=== PATIENT | female | born 1955 | race Caucasian/White ===

== ENCOUNTER 2018-08-26 02:06 | Inpatient (IN) ==
--- NOTE | 2018-08-26 04:28 | Internal Med History&Physical ---
<Karol Alexandre N - Last Filed: 08/26/18 06:32> Date of Encounter: 08/26/18 Time of Encounter: 04:28 Internal Medicine - H&P: HPI Chief complaint: Persistent shortness of breath and weakness Admitted From: Emergency Dept History of present illness: Ms. Seymour is a 63 year old female with a history of CHF, COPD, CAD, diabetes, hypertension, hyperlipidemia, and hepatitis C. She arrived at [facility] as a transfer from [place], where she presented complaining of persistent shortness of breath and weakness. She recently returned home from a trip to [place] last month, which was complicated by an extended hospital stay. She states that she went to [place] to visit her sister in the hospital on July 18, and presented to the emergency room herself around July 31 for severe weakness and shortness of breath. She states that she was found to be severely anemic, with a hemoglobin around 4, and required transfusion of 2 units of blood. During this time, she was also diagnosed with pneumonia, and received antibiotic therapy with 2 different medications. She states that her severe anemia was a result of a GI bleed, as she had been experiencing black tarry stools for approximately 3-4 days before her hospital admission. She underwent EGD in [place], which did not reveal the source of the bleed. She states that she opted to leave the hospital prior to having a colonoscopy so that she could return home to her regular physician and complete her workup locally. She denies any recurrence of dark stools since having the EGD performed. She states that when she was discharged from the hospital she was requiring supplemental oxygen via nasal cannula. Prior to that hospitalization, she did not require home oxygen therapy. She arrived back home early this week, and states that she has continued to feel extremely weak and tired. She reports worsening shortness of breath with exertion and states that she has a hard time catching her breath. She notes that if she ambulates without supplemental oxygen, her oxygen saturation drops to the 80s, though it quickly improves back to the 90s when she puts it back on. She reports persistent cough without sputum production, and reports subjective fevers and chills. She states that the reason she sought evaluation and [place] last night was because her daughter, who is a nurse, told her that she did not look well and should be evaluated. Initial vital signs obtained upon arrival to the [place] ED were as follows: Temperature 100.1, HR 108, RR 24, BP 119/60, and oxygen saturation of 96% on 2 L. Her white blood cell count was within normal limits; however, she was found to have an elevated lactic acid of 2.7. Laboratory results were also significant for elevated AST of 43 and elevated alkaline phosphatase of 125. Chest x-ray demonstrated bilateral diffuse airspace disease, which was felt to likely be edema; however, it was noted that extensive pneumonia and also have this appearance. Due to initial concern for sepsis, patient administered 1 L of normal saline and started on IV antibiotic therapy with Zosyn. Repeat lactic acid after fluid administrate session was found to be improved at 2.2. Chest CTA demonstrated no evidence of pulmonary embolism or acute aortic disease, though patchy bilateral pulmonary infiltrates consistent with pneumonia were again noted. Patient was transferred to [facility] due to concern for recurrence bilateral pneumonia and possible sepsis. Patient was seen and evaluated by the bedside soon after arrival to [place]. Initial vital signs obtained upon arrival at [facility] were all within normal limits. She denied any ongoing wheezing or productive cough, though she stated that she felt like there was sputum stuck in her throat. She reports feeling slightly improved after having received fluids and antibiotics at [place]. Patient denied any acute complaints or concerns at the time of evaluation. Past Med Surg Social Fam HX - Past Medical History Medical history: arthritis, CHF, COPD, coronary artery disease, diabetes, fibromyalgia, GI bleed, hepatitis, hyperlipidemia, hypertension Additional medical history: heart blockage Psychiatric history: anxiety, depression - Past Surgical History Surgical History: cholecystectomy, hysterectomy Additional surgical history: foot surgery for heel spur - Social History Smoking Status: Former smoker Smokeless Tobacco Status: No Alcohol use: none Drug use: none - Family History Mother Living Status: Hx Family Endocrine Disorder: Yes Father Living Status: Hx Family Cancer: Yes Internal Medicine - H&P: Meds Furosemide [Lasix] 120 mg PO DAILY PRN 01/18/16 [History] Gabapentin [Neurontin] 600 mg PO QID 01/18/16 [History] Glimepiride [Amaryl] 2 mg PO DAILY 01/18/16 [History] Losartan [Cozaar] 25 mg PO DAILY 01/18/16 [History] Sertraline [Zoloft] 150 mg PO DAILY 01/18/16 [History] metFORMIN [Glucophage] 500 mg PO BID 01/18/16 [History] Tiotropium [Spiriva] 18 mcg IH DAILY #1 capsule 08/05/17 [Rx] Aspirin 81 mg PO DAILY #30 tab.chew 05/10/18 [Rx] Oxycodone HCl/Acetaminophen [Percocet 7.5-325 mg Tablet] 1 each PO BID PRN 05/10/18 [History] Clopidogrel [Plavix] 75 mg PO DAILY 08/25/18 [History] Pravastatin Sodium [Pravachol] 80 mg PO QPM 08/26/18 [History] Allergy/AdvReac Type Severity Reaction Status Date / Time carvedilol Allergy Difficulty Verified 08/25/18 20:29 Breathing moxifloxacin [From Avelox] Allergy Rash Verified 08/25/18 20:29 acetaminophen [From Vicodin] AdvReac Gastrointestinal Verified 08/25/18 20:29 Upset hydrocodone [From Vicodin] AdvReac Gastrointestinal Verified 08/25/18 20:29 Upset All Systems PM: A 10-system review of systems was performed and is negative for pertinent fi ndings except as documented above in the HPI. - Constitutional Exam: GENERAL: Well-developed, well-nourished adult female in no acute distress. She is interactive and pleasantly conversational. HEENT: Atraumatic and normocephalic. NECK: Soft and nontender. No thyromegaly or lymphadenopathy noted. CARDIOVASCULAR: Regular rate and rhythm. S1 and S2 present. RESPIRATORY: Diffusely decreased breath sounds bilaterally. No wheezes, rales, or rhonchi noted. Chest rises and falls symmetrically with respiration without accessory muscle use. GASTROINTESTINAL: Soft, nontender, and nondistended. EXTREMITIES: Mild bilateral lower extremity edema present. SKIN: Warm, dry, and intact. NEUROLOGIC: Alert and oriented 3. Patient is cooperative with exam and answers questions appropriately. No apparent focal deficits. PSYCHIATRIC: Appropriate mood and affect demonstrated. Internal Med - H&P Results - Labs CBC & Chem 7: 08/26/18 05:09 08/26/18 05:09 - Assessment and plan (1) Dyspnea Current Visit: Yes Status: Acute Assessment and plan: Likely multifactorial, given patient's recent bout of bilateral pneumonia and her history of COPD. Though chest x-ray and CT angiogram demonstrated findings consistent with pneumonia, it is likely that enough time has not passed to allow for complete resolution of the radiographic evidence of her prior infection. Patient is afebrile and does not have an elevated white blood cell count. - Vancomycin with pharmacy to dose to therapeutic level - Continue Zosyn 3.375mg Q8H - Repeat laboratory studies Tuesday morning with potential discontinuation of antibiotic therapy if she continues to show no sign of acute recurrent infection - Duonebs Q4H - Albuterol nebulizer Q2H PRN - Consider home oxygen qualification study - Consult to social work to facilitate home oxygen setup Qualifiers: Dyspnea type: unspecified Qualified Code(s): R06.00 - Dyspnea, unspecified (2) Diabetes mellitus Current Visit: No Status: Acute Assessment and plan: - Accuchecks ACHS - Low-dose corrective SSI PRN Qualifiers: Diabetes mellitus type: type 2 Diabetes mellitus intermediate school teacher insulin use: without intermediate school teacher use Diabetes mellitus complication status: with unspecified complications Qualified Code(s): E11.8 - Type 2 diabetes mellitus with unspecified complications (3) Hypertension Current Visit: Yes Assessment and plan: Patient is uncertain what blood pressure medication she takes, with the exception of losartan. She states that her heart doctor took her off one medication recently, but she is unsure what that was. - Continue home medication of losartan - Continue other home blood pressure medications once confirmed by pharmacy Qualifiers: Hypertension type: essential hypertension Qualified Code(s): I10 - Essential (primary) hypertension (4) Tobacco abuse Current Visit: Yes Status: Acute Assessment and plan: Patient has an extensive smoking history; however, she states that she has not smoked a cigarette since she was admitted to the hospital in [place] on 07/31/2018. She reports that use of a nicotine patch has assisted in her smoking cessation. - Patient was counseled and encouraged to continue with smoking cessation - Nicotine patch TD (5) DVT prophylaxis Current Visit: Yes Status: Acute Assessment and plan: - SCDs (6) Weakness Current Visit: Yes Status: Acute Assessment and plan: Likely secondary to deconditioning from recent pneumonia and severe anemia from presumed GI bleed. - Physical and occupation therapy consults placed for evaluation - Consider walk test for home oxygen qualification - Time Spent With Patient Total time spent is greater than 50% in coordination of care (as documented) at patient's floor/unit and/or counseling patient: <Farzaneh Leavitt - Last Filed: 08/26/18 18:47> Date of Encounter: 08/26/18 Internal Medicine - H&P: HPI History of present illness: Ms. Seymour is a 63 year old female All Systems PM: A 10-system review of systems was performed and is negative for pertinent findings except as documented above in the HPI. - Constitutional Vitals: Temp Pulse Resp BP Pulse Ox 97.9 F 86 16 146/63 94 08/26/18 12:12 08/26/18 17:14 08/26/18 15:37 08/26/18 17:14 08/26/18 17:14 Internal Med - H&P Results - Labs CBC & Chem 7: 08/26/18 05:09 08/26/18 05:09 Labs: Short CBC 08/26/18 Range/Units 05:09 WBC 7.0 (4.3-11.1) K/mcL Hgb 9.3 L (11.5-15.4) g/dL Hct 32.3 L (35.3-44.9) % Plt Count 231 (140-400) K/mcL Neutrophils # 3.6 (1.6-8.9) K/mcL BMP 08/26/18 05:09 Sodium 139 Potassium 3.6 Chloride 110 H Carbon Dioxide 22 L BUN 8 Creatinine 0.54 L Glucose 132 H Calcium 8.2 L Liver Function 08/26/18 Range/Units 05:09 Total Bilirubin 0.4 (0.3-1.0) mg/dL AST 30 (13-39) Units/L ALT 21 (7-52) Units/L Alkaline Phosphatase 116 H (34-104) Units/L Albumin 3.1 L (3.5-5.7) g/dL - Assessment and plan (1) Diabetes mellitus Current Visit: No Status: Acute Qualifiers: Diabetes mellitus type: type 2 Diabetes mellitus intermediate school teacher insulin use: without skilled nursing use Diabetes mellitus complication status: with unspecified complications Qualified Code(s): E11.8 - Type 2 diabetes mellitus with unspecified complications (2) Hypertension Current Visit: Yes Qualifiers: Hypertension type: essential hypertension Qualified Code(s): I10 - Essential (primary) hypertension (3) DVT prophylaxis Current Visit: Yes Status: Acute (4) Tobacco abuse Current Visit: Yes Status: Acute (5) Dyspnea Current Visit: Yes Status: Acute Qualifiers: Dyspnea type: unspecified Qualified Code(s): R06.00 - Dyspnea, unspecified (6) Weakness Current Visit: Yes Status: Acute - Time Spent With Patient Total time spent is greater than 50% in coordination of care (as documented) at patient's floor/unit and/or counseling patient: - Attending Attestation I performed a history and physical examination of the patient and discussed her management with the resident. I reviewed the resident's note and agree with the documented findings and plan of care.
[2018-08-26 05:32] LABS: Basophils % 0.3 %; Mean Corpuscular HGB Conc 28.8 g/dL (31.6-35.5); Red Cell Distribution Width 17.8 % (11.5-14.5)
[2018-08-26 05:33] LABS: Eosinophils # 0.2 K/mcL (0.0-0.6); Eosinophils % 2.4 %; Hematocrit 32.3 % (35.3-44.9); Hemoglobin 9.3 g/dL (11.5-15.4); Immature Granulocytes % 0.4 % (0-4); Lymphocytes # 2.6 K/mcL (0.6-4.6); Lymphocytes % 37.1 %; Mean Corpuscular Hemoglobin 23.5 pg (28.0-33.3); Mean Corpuscular Volume 81.6 fL (83.0-100.0); Mean Platelet Volume 10.4 fL (9.4-12.4); Monocytes # 0.6 K/mcL (0.0-1.3); Monocytes % 8.4 %; Neutrophils # 3.6 K/mcL (1.6-8.9); Platelet Count 231 K/mcL (140-400); Red Blood Count 3.96 M/mcL (3.82-4.97); Segmented Neutrophils % 51.4 %
[2018-08-26 05:38] LABS: INR 1.1; Prothrombin Time 12.4 Seconds (9.4-12.1)
[2018-08-26] MEDS ORDERED: Naloxone 0.4 MG/ML INJ IVP PRN (05:40)
[2018-08-26] MEDS ORDERED: *HR* Dextrose 50 % in Water (Syg) 50 ML SYRINGE IVP PRN (05:45)
[2018-08-26] MEDS ORDERED: Dextrose Gel 15 GM/37.5 ML TUBE PO PRN ×2 (05:45)
[2018-08-26] MEDS ORDERED: D5% in Water 1,000 ML IVC PRN (05:45)
[2018-08-26] MEDS ORDERED: Albuterol 2.5 MG/3 ML NEBULIZER IH PRN (05:47)
[2018-08-26 05:52] LABS: Alanine Aminotransferase 21 Units/L (7-52); Albumin 3.1 g/dL (3.5-5.7); Alkaline Phosphatase 116 Units/L (34-104); Aspartate Amino Transferase 30 Units/L (13-39); BUN/Creatinine Ratio 15 (6-26); Bilirubin,Total 0.4 mg/dL (0.3-1.0); Blood Urea Nitrogen 8 mg/dL (8-23); Calcium 8.2 mg/dL (8.6-10.3); Carbon Dioxide 22 mEq/L (23-29); Chloride 110 mEq/L (98-107); Glucose 132 mg/dL (70-105); Osmolality,Calculated 288 (280-300); Potassium 3.6 mEq/L (3.5-5.1); Sodium 139 mEq/L (136-145); Total Protein 6.1 g/dL (6.4-8.9); eGFR For Non-African Americans > 60 (> 60)
[2018-08-26 06:02] LABS: Anisocytosis 1+ (Not Present); Hypochromasia Present (Not Present); Macrocytosis Present (Not Present); Platelet Estimate Normal (Normal); Poikilocytosis 1+ (Not Present)
[2018-08-26 06:03] LABS: Polychromasia 1+ (Not Present); Tear Drop Cells 1+ (Not Present)
[2018-08-26 06:04] LABS: Ovalocytes 1+ (Not Present)
[2018-08-26] MEDS ORDERED: Furosemide 40 MG TABLET PO PRN (06:05)
[2018-08-26] MEDS: Ipratropium/Albuterol Neb 3 ML IH SCH ×5 (07:57→23:08)
[2018-08-26] MEDS: Insulin LISPRO 300 UNITS/3 ML VIAL SQ SCH ×4 (09:26→21:52)
[2018-08-26] MEDS: Gabapentin 300 MG CAPSULE PO SCH ×4 (09:29→21:50)
[2018-08-26] MEDS: Nicotine 21 MG PATCH.TD24 TD SCH (09:29)
[2018-08-26] MEDS: Piperacillin/Tazobactam 3.375 GM in 0.9 % Sodium Chloride Mini Bag 100 ML IVPB SCH ×2 (10:16→15:17)
[2018-08-26] MEDS: *HR* Heparin 5,000 UNIT/ML VIAL SQ SCH ×2 (13:37→21:51)
--- NOTE | 2018-08-26 17:04 | Event Note ---
Date of Encounter: 08/26/18 Time of Encounter: 11:00 Patient seen and evaluated by nocturnalist earlier this morning and also by m yself. Patient is a 62-year-old female with past medical history significant for CHF, COPD, CAD, diabetes, hypertension, hyperlipidemia, and hepatitis C who arrived as a transfer from [facility] due to extensive pneumonia that was noted on imaging and concern for sepsis. Patient without leukocytosis and afebrile; she is on her baseline O2. Will continue IV vancomycin and IV Zosyn.
[2018-08-26] MEDS ORDERED: *HR* OxyCODONE/APAP 5/325 TABLET PO ONE (18:03)
[2018-08-27] MEDS: Piperacillin/Tazobactam 3.375 GM in 0.9 % Sodium Chloride Mini Bag 100 ML IVPB SCH ×3 (01:31→16:58)
[2018-08-27 02:49] LABS: Basophils % 0.2 %; Eosinophils # 0.1 K/mcL (0.0-0.6); Eosinophils % 2.5 %; Hematocrit 30.2 % (35.3-44.9); Hemoglobin 8.5 g/dL (11.5-15.4); Immature Granulocytes % 0.2 % (0-4); Lymphocytes # 1.7 K/mcL (0.6-4.6); Lymphocytes % 37.5 %; Mean Corpuscular HGB Conc 28.1 g/dL (31.6-35.5); Mean Corpuscular Hemoglobin 23.7 pg (28.0-33.3); Mean Corpuscular Volume 84.4 fL (83.0-100.0); Mean Platelet Volume 10.3 fL (9.4-12.4); Monocytes # 0.5 K/mcL (0.0-1.3); Monocytes % 11.3 %; Neutrophils # 2.1 K/mcL (1.6-8.9); Platelet Count 192 K/mcL (140-400); Red Blood Count 3.58 M/mcL (3.82-4.97); Red Cell Distribution Width 17.7 % (11.5-14.5); Segmented Neutrophils % 48.3 %
[2018-08-27 03:01] LABS: BUN/Creatinine Ratio 17 (6-26); Blood Urea Nitrogen 9 mg/dL (8-23); Calcium 8.1 mg/dL (8.6-10.3); Carbon Dioxide 23 mEq/L (23-29); Chloride 109 mEq/L (98-107); Glucose 179 mg/dL (70-105); Osmolality,Calculated 293 (280-300); Potassium 3.5 mEq/L (3.5-5.1); Sodium 140 mEq/L (136-145); eGFR For Non-African Americans > 60 (> 60)
[2018-08-27 03:31] LABS: Hypochromasia Present (Not Present); Platelet Estimate Normal (Normal)
[2018-08-27] MEDS: Ipratropium/Albuterol Neb 3 ML IH SCH ×6 (04:57→23:58)
[2018-08-27] MEDS: *HR* Heparin 5,000 UNIT/ML VIAL SQ SCH ×3 (06:22→21:52)
[2018-08-27] MEDS: Nicotine 21 MG PATCH.TD24 TD SCH (08:27)
[2018-08-27] MEDS: Furosemide 40 MG TABLET PO SCH ×3 (08:28→16:59)
--- NOTE | 2018-08-27 09:09 | Internal Med Progress Note ---
Hospitalist Progress Note - Encounter Date of Encounter: 08/27/18 Time of Encounter: 11:00 - Subjective Interval History: Patient with a past medical history significant for acute anemia in addition to CHF and COPD presents as a transfer from [facility] due to concerns for sepsis with pneumonia. Patient noted to have patchy bilateral pulmonary infiltrates consistent with ammonia on imaging but has remained afebrile without leukocytosis and is on room air Patient with acute anemia on admission and hemoglobin continues to drop; patient hemodynamically stable (will consult GI) - Exam Vitals: Temp Pulse Resp BP Pulse Ox 97.9 F 93 17 120/49 90 08/27/18 08:42 08/27/18 08:42 08/27/18 05:24 08/27/18 08:42 08/27/18 08:42 Exam: Gen.: Nonacute distress, alert and oriented 3 ENT: Mucosal membranes moist Respiratory: Lungs are clear to auscultation bilaterally without any wheezing rhonchi or rales Cardiovascular: Normal S1 and S2 regular rate rhythm no murmurs rubs or gallops Abdomen: Soft, nontender and nondistended with positive bowel sounds Extremities: No lower extremity edema Skin: Normal color - Assessment and Plan (1) Pneumonia Current Visit: Yes Status: Acute Assessment and Plan: Patient with patchy bilateral pulmonary infiltrates consistent with pneumonia on CT of the chest Patient has been weaned off supplemental oxygenation and there is afebrile without leukocytosis Will continue day 2 of IV Zosyn and vancomycin (2) Acute anemia Current Visit: Yes Status: Acute Assessment and Plan: Patient noted to have a hemoglobin of 10.5 on admission and this morning is 8.5; repeat hemoglobin later on in the day was 9.2 Patient had a hemoglobin of 12.8 on 05/11/18 Per EMR report patient apparently was found to have acute blood loss anemia in [place] and had a partial workup by GI but left prior to getting recommended c olonoscopy Will consult GI to complete workup for etiology of acute anemia Will continue to monitor hemoglobin (3) Weakness Current Visit: Yes Status: Acute Assessment and Plan: Suspect multifactorial secondary to pneumonia and anemia above Physical/occupational therapy consult and appreciate recommendations (4) Dyspnea Current Visit: Yes Status: Acute Assessment and Plan: Suspect multifactorial as above Patient has been weaned off supplemental oxygenation Continue management as above (5) Hypertension Current Visit: Yes Assessment and Plan: Controlled; continue home dose of losartan (6) Diabetes mellitus Current Visit: No Status: Acute Assessment and Plan: Continue Accuchecks ACHS with low-dose corrective SSI (7) Mood disorder Current Visit: Yes Status: Acute Assessment and Plan: Continue home medications (8) HLD (hyperlipidemia) Current Visit: Yes Status: Acute Assessment and Plan: Continue statin (9) Tobacco abuse Current Visit: Yes Status: Acute Assessment and Plan: Smoking cessation; Nicotine patch TD (10) DVT prophylaxis Current Visit: Yes Status: Acute - Time Spent with Patient Total time spent is greater than 50% in coordination of care (as documented) at patient's floor/unit and/or counseling patient: Internal Medicine: Result - Labs CBC & Chem 7: 08/27/18 14:25 08/27/18 02:17 Labs: Short CBC 08/27/18 Range/Units 02:17 WBC 4.4 (4.3-11.1) K/mcL Hgb 8.5 L (11.5-15.4) g/dL Hct 30.2 L (35.3-44.9) % Plt Count 192 (140-400) K/mcL Neutrophils # 2.1 (1.6-8.9) K/mcL BMP 08/27/18 02:17 Sodium 140 Potassium 3.5 Chloride 109 H Carbon Dioxide 23 BUN 9 Creatinine 0.54 L Glucose 179 H Calcium 8.1 L - ABG Interpretation ABG results: PT/INR, D-dimer PT 12.4 Seconds (9.4-12.1) H 08/26/18 05:09 Consult Discharge Plan - Plan Referrals: Justin Sharma, WOOD HANDLER [Primary Care Provider] - (4) Dyspnea Qualifiers: Dyspnea type: unspecified Qualified Code(s): R06.00 - Dyspnea, unspecified (5) Hypertension Qualifiers: Hypertension type: essential hypertension Qualified Code(s): I10 - Essential (primary) hypertension (6) Diabetes mellitus Qualifiers: Diabetes mellitus type: type 2 Diabetes mellitus terminal supervisor insulin use: witho ut residential use Diabetes mellitus complication status: with unspecified c omplications Qualified Code(s): E11.8 - Type 2 diabetes mellitus with unsp ecified complications
[2018-08-27] MEDS: Insulin LISPRO 300 UNITS/3 ML VIAL SQ SCH ×4 (09:56→22:43)
[2018-08-27] MEDS: Gabapentin 300 MG CAPSULE PO SCH ×4 (10:37→21:51)
[2018-08-27 14:44] LABS: Hematocrit 32.6 % (35.3-44.9); Hemoglobin 9.2 g/dL (11.5-15.4)
[2018-08-28] MEDS: Piperacillin/Tazobactam 3.375 GM in 0.9 % Sodium Chloride Mini Bag 100 ML IVPB SCH ×3 (02:20→15:23)
[2018-08-28] MEDS: Ipratropium/Albuterol Neb 3 ML IH SCH ×6 (03:50→23:11)
[2018-08-28] MEDS: *HR* Heparin 5,000 UNIT/ML VIAL SQ SCH (06:14)
[2018-08-28] MEDS: Nicotine 21 MG PATCH.TD24 TD SCH (09:46)
[2018-08-28] MEDS: Insulin LISPRO 300 UNITS/3 ML VIAL SQ SCH ×4 (09:47→20:44)
[2018-08-28] MEDS: Furosemide 40 MG TABLET PO SCH ×3 (09:47→17:12)
[2018-08-28] MEDS: Gabapentin 300 MG CAPSULE PO SCH ×4 (09:48→20:35)
[2018-08-28] MEDS ORDERED: *HR* OxyCODONE/APAP 5/325 TABLET PO PRN (09:55)
--- NOTE | 2018-08-28 10:49 | Gastroenterology Consult Note ---
<Christie Marcial - Last Filed: 08/28/18 10:46> Date of Encounter: 08/28/18 Time of Encounter: 09:50 - Assessment and plan (1) Acute anemia Current Visit: Yes Status: Acute Assessment and plan: Pt had negative EGD 2 weeks ago. She is on plavix for coronary stent 4 months ago. She had melena which is resolved. She needs EGD and colonoscopy to rule out esophagitis, duodenitis, gastritis, pud, MW tear, or avm, will plan for tomorrow. Discussed pt and she verbalizes understanding and is in agreement. Would hold plavix and continue heparin bridge until after scopes. (2) Pneumonia Current Visit: Yes Status: Acute Assessment and plan: Continue DN, zosyn, and vanco, per primary Qualifiers: Pneumonia type: due to unspecified organism Laterality: bilateral Lung location: unspecified part of lung Qualified Code(s): J18.9 - Pneumonia, unspecified organism - Time Spent With Patient Total time spent is greater than 50% in coordination of care (as documented) at patient's floor/unit and/or counseling patient: GI History of Present Illness - Data of Consult Patient: new to practice Consult date: 08/28/18 Requesting Physician: Carmelo Cardona - Consult Narrative Reason for consult: anemia History of present illness: Ms. Seymour is a 63 year old female with a history of CHF, COPD, CAD, diabetes, hypertension, hyperlipidemia, and hepatitis C. She presented to [facility], with complaints of persistent shortness of breath and weakness. She recently returned home from a trip to [place] last month, which was complicated by an extended hospital stay. She states that she went to [place] to visit her sister in the hospital on July 18, and presented to the emergency room herself around July 31 for severe weakness and shortness of breath. She states that she was found to be severely anemic, with a hemoglobin around 4, and required transfusion of 2 units of blood. During this time, she was also diagnosed with pneumonia, and received antibiotic therapy with 2 different medications. She states that her severe anemia was a result of a GI bleed, as she had been experiencing black tarry stools for approximately 3-4 days before her hospital admission. She underwent EGD in [place], which did not reveal the source of the bleed. She states that she opted to leave the hospital prior to having a colonoscopy so that she could return home to her regular physician and complete her workup locally. She denies any recurrence of dark stools since having the EGD performed. She denies any abdominal pain nausea, vomiting, reflux, or diarrhea. She states she had a normal brown stool this morning. She denies any bright red rectal bleeding. She does complain of 2+ bilateral lower extremity edema. She is currently on Plavix for coronary stents were replaced which were placed in April 2018. Hemoglobin dropped from 12.8-8.5. EGD: 08/03 no bleeding found Colonoscopy: (years ago per pt) Anticoagulants: plavix on hold, sub q heparin Past Med Surg Social Fam HX - Past Medical History Medical history: arthritis, CHF, COPD, coronary artery disease, diabetes, fibromyalgia, GI bleed, hepatitis, hyperlipidemia, hypertension Additional medical history: heart blockage Psychiatric history: anxiety, depression - Past Surgical History Surgical History: cholecystectomy, hysterectomy Additional surgical history: foot surgery for heel spur - Social History Smoking Status: Former smoker Smokeless Tobacco Status: No Alcohol use: none Drug use: none - Family History Mother Living Status: Hx Family Endocrine Disorder: Yes Father Living Status: Age at : 75 Cause of : burned Hx Family Cancer: Yes Review of Systems: GI: as per [place] GENERAL: had fever and some chills EYES: denies yellow discoloration ENT: denies pain with swallowing or difficulty swallowing CARDIO: denies chest pain, palpitations RESP: Shortness of breath with exertion : denies change in color of urine NEURO: increased weakness HEME: Denies any bruising MS: denies joint pain, joint swelling or back pain. DERM: denies rash or itching PSYCH: Denies history of anxiety or depression - Constitutional Vitals: Temp Pulse Resp BP Pulse Ox 97.6 F 90 16 120/59 90 08/28/18 06:00 08/28/18 06:00 08/28/18 07:23 08/28/18 06:00 08/28/18 07:23 Exam: CONSTITUTIONAL:alert, no acute distress.HEAD:normocephalic.EYES:no jaundice.NECK:no obvious swelling.HEART:regular rate and rhythm, no murmurs.LUNGS:bilateral fair air entry.ABDOMEN:non distended, soft, non tender, no masses palpable, no organomegaly.RECTAL EXAM:Deferred.EXTREMITIES:no clubbing, cyanosis, 2+ ble edema.SKIN:no stigmata of chronic liver disease, pallor noted.NEUROLOGIC:no obvious focal defect. Results - Labs CBC & Chem 7: 08/27/18 14:25 08/27/18 02:17 Labs: Last Result Calcium 8.1 mg/dL (8.6-10.3) L 08/27/18 02:17 Entire Visit Hgb 9.2 g/dL (11.5-15.4) L 08/27/18 14:25 Hct 32.6 % (35.3-44.9) L 08/27/18 14:25 PT 12.4 Seconds (9.4-12.1) H 08/26/18 05:09 Total Bilirubin 0.4 mg/dL (0.3-1.0) 08/26/18 05:09 AST 30 Units/L (13-39) 08/26/18 05:09 ALT 21 Units/L (7-52) 08/26/18 05:09 - ABG ABG results: PT/INR, D-dimer PT 12.4 Seconds (9.4-12.1) H 08/26/18 05:09 Consult Discharge Plan - Plan Referrals: Justin Sharma, CR[employer] SERVICE TECHNICIAN [Primary Care Provider] - <Omero Pate - Last Filed: 08/28/18 18:27> Date of Encounter: 08/28/18 Time of Encounter: 18:00 - Time Spent With Patient Total time spent is greater than 50% in coordination of care (as documented) at patient's floor/unit and/or counseling patient: GI History of Present Illness - Data of Consult Requesting Physician: Carmelo Cardona - Consult Narrative History of present illness: Ms. Seymour is a 63 year old female - Constitutional Vitals: Temp Pulse Resp BP Pulse Ox 97.6 F 109 15 129/72 92 08/28/18 16:34 08/28/18 16:34 08/28/18 16:34 08/28/18 16:34 08/28/18 16:34 Results - Labs CBC & Chem 7: 08/27/18 14:25 08/27/18 02:17 Labs: Last Result Calcium 8.1 mg/dL (8.6-10.3) L 08/27/18 02:17 Entire Visit Hgb 9.2 g/dL (11.5-15.4) L 08/27/18 14:25 Hct 32.6 % (35.3-44.9) L 08/27/18 14:25 PT 12.4 Seconds (9.4-12.1) H 08/26/18 05:09 Total Bilirubin 0.4 mg/dL (0.3-1.0) 08/26/18 05:09 AST 30 Units/L (13-39) 08/26/18 05:09 ALT 21 Units/L (7-52) 08/26/18 05:09 - ABG ABG results: PT/INR, D-dimer PT 12.4 Seconds (9.4-12.1) H 08/26/18 05:09 - Attending Attestation I have personally performed a face to face evaluation on this patient. I have reviewed and agree with the care plan. History and Exam by me shows: Pt seen at the bedside. Per The patient she was having black stool although lately stools are brown in color. Denies any abdominal pain. On examination,: Abdomen is large but soft. Assessment: Patient with coronary disease status post stenting 4 months ago now with anemia with acute drop in her hemoglobin with a history of black stool last week. Had EGD done recently which was unremarkable. Recommendation: EGD and colonoscopy to rule out GI causes for her anemia/blood loss
--- NOTE | 2018-08-28 20:05 | Internal Med Progress Note ---
Hospitalist Progress Note - Encounter Date of Encounter: 08/28/18 Time of Encounter: 11:00 - Subjective Interval History: Patient with a past medical history significant for acute anemia in addition to CHF and COPD presents as a transfer from [facility] due to concerns for sepsis with pneumonia. Patient noted to have patchy bilateral pulmonary infiltrates consistent with ammonia on imaging but has remained afebrile without leukocytosis and is on room air Patient with acute anemia on admission and hemoglobin continues to drop; patient hemodynamically stable GI consult with recommendation for upper and lower endoscopy on 08/29/18 for evaluation. - Exam Vitals: Temp Pulse Resp BP Pulse Ox 97.6 F 109 16 129/72 97 08/28/18 16:34 08/28/18 16:34 08/28/18 19:47 08/28/18 16:34 08/28/18 19:47 Exam: Gen.: Nonacute distress, alert and oriented 3 ENT: Mucosal membranes moist Respiratory: Lungs are clear to auscultation bilaterally without any wheezing rhonchi or rales Cardiovascular: Normal S1 and S2 regular rate rhythm no murmurs rubs or gallops Abdomen: Soft, nontender and nondistended with positive bowel sounds Extremities: No lower extremity edema Skin: Normal color - Assessment and Plan (1) Pneumonia Current Visit: Yes Status: Acute Assessment and Plan: Patient with patchy bilateral pulmonary infiltrates consistent with pneumonia on CT of the chest Patient has been weaned off supplemental oxygenation and there is afebrile without leukocytosis Will continue day 3 of IV Zosyn and vancomycin (2) Acute anemia Current Visit: Yes Status: Acute Assessment and Plan: Patient noted to have a hemoglobin of 10.5 on admission and this morning is 8.5; repeat hemoglobin later on in the day was 9.2 Patient had a hemoglobin of 12.8 on 05/11/18 Per EMR report patient apparently was found to have acute blood loss anemia in [place] and had a partial workup by GI but left prior to getting recommended colonoscopy GI consult with recommendation for upper and lower endoscopy on 08/29/18 for evaluation. Will continue to monitor hemoglobin (3) Weakness Current Visit: Yes Status: Acute Assessment and Plan: Suspect multifactorial secondary to pneumonia and anemia above Physical/occupational therapy consult and appreciate recommendations (4) Dyspnea Current Visit: Yes Status: Acute Assessment and Plan: Suspect multifactorial as above Patient has been weaned off supplemental oxygenation Continue management as above (5) Hypertension Current Visit: Yes Assessment and Plan: Controlled; continue home dose of losartan (6) Diabetes mellitus Current Visit: No Status: Acute Assessment and Plan: Continue Accuchecks ACHS with low-dose corrective SSI (7) Mood disorder Current Visit: Yes Status: Acute Assessment and Plan: Continue home medications (8) HLD (hyperlipidemia) Current Visit: Yes Status: Acute Assessment and Plan: Continue statin (9) Tobacco abuse Current Visit: Yes Status: Acute Assessment and Plan: Smoking cessation; Nicotine patch TD (10) DVT prophylaxis Current Visit: Yes Status: Acute Assessment and Plan: - SCDs - Time Spent with Patient Total time spent is greater than 50% in coordination of care (as documented) at patient's floor/unit and/or counseling patient: Internal Medicine: Result - Labs CBC & Chem 7: 08/27/18 14:25 08/27/18 02:17 - ABG Interpretation ABG results: PT/INR, D-dimer PT 12.4 Seconds (9.4-12.1) H 08/26/18 05:09 Consult Discharge Plan - Plan Referrals: Justin Sharma, DISTRIBUTION SYSTEMS SUPERINTENDENT [Primary Care Provider] - (1) Pneumonia Qualifiers: Pneumonia type: due to unspecified organism Laterality: bilateral Lung location: unspecified part of lung Qualified Code(s): J18.9 - Pneumonia, unspecified organism (4) Dyspnea Qualifiers: Dyspnea type: unspecified Qualified Code(s): R06.00 - Dyspnea, unspecified (5) Hypertension Qualifiers: Hypertension type: essential hypertension Qualified Code(s): I10 - Essential (primary) hypertension (6) Diabetes mellitus Qualifiers: Diabetes mellitus type: type 2 Diabetes mellitus snf insulin use: without svp programmatic tv use Diabetes mellitus complication status: with unspecified complications Qualified Code(s): E11.8 - Type 2 diabetes mellitus with unspecified complications
[2018-08-29] MEDS: Piperacillin/Tazobactam 3.375 GM in 0.9 % Sodium Chloride Mini Bag 100 ML IVPB SCH ×2 (00:16→08:31)
[2018-08-29] MEDS: Ipratropium/Albuterol Neb 3 ML IH SCH ×4 (04:06→15:40)
[2018-08-29 04:42] LABS: Hematocrit 31.1 % (35.3-44.9); Hemoglobin 9.3 g/dL (11.5-15.4); Mean Corpuscular HGB Conc 29.9 g/dL (31.6-35.5); Mean Corpuscular Hemoglobin 23.9 pg (28.0-33.3); Mean Corpuscular Volume 79.9 fL (83.0-100.0); Mean Platelet Volume 9.7 fL (9.4-12.4); Platelet Count 298 K/mcL (140-400); Red Blood Count 3.89 M/mcL (3.82-4.97)
[2018-08-29 04:43] LABS: Basophils % 0.3 %; Eosinophils # 0.2 K/mcL (0.0-0.6); Eosinophils % 2.4 %; Immature Granulocytes % 0.4 % (0-4); Lymphocytes % 42.1 %; Monocytes # 0.9 K/mcL (0.0-1.3); Monocytes % 9.8 %
[2018-08-29 04:44] LABS: Lymphocytes # 3.8 K/mcL (0.6-4.6)
[2018-08-29 04:56] LABS: BUN/Creatinine Ratio 8 (6-26); Blood Urea Nitrogen 7 mg/dL (8-23); Calcium 8.3 mg/dL (8.6-10.3); Carbon Dioxide 24 mEq/L (23-29); Chloride 103 mEq/L (98-107); Glucose 129 mg/dL (70-105); Osmolality,Calculated 286 (280-300); Potassium 3.3 mEq/L (3.5-5.1); Sodium 138 mEq/L (136-145); eGFR For Non-African Americans > 60 (> 60)
[2018-08-29] MEDS: Insulin LISPRO 300 UNITS/3 ML VIAL SQ SCH ×2 (07:36→12:02)
[2018-08-29] MEDS: Furosemide 40 MG TABLET PO SCH ×3 (08:32→16:13)
[2018-08-29] MEDS: Nicotine 21 MG PATCH.TD24 TD SCH (08:32)
[2018-08-29] MEDS: Gabapentin 300 MG CAPSULE PO SCH ×3 (08:32→16:13)
--- NOTE | 2018-08-29 11:10 | Anesthesia Evaluation PreOp ---
Date of Encounter: 08/29/18 Time of Encounter: 11:08 - Past History Planned Operation: EGD/Colonoscopy Cardiac History: CHF, HTN, Hyperlipidemia Pulmonary History: COPD MILLER HEAD WET PROCESS History: Other (Anxiety/Depression) Other Medical History: Hepatic (Hep C), Diabetes Type II, Other (fibromyalgia) Anesthesia History: No Prior Anesthetic Complications, Past Anesthesia (cholecystectomy, hysterectomy foot surgery for heel spur) : No Alcohol Use: none Drug use: none Medications and Allergies Furosemide [Lasix] 120 mg PO DAILY PRN 01/18/16 [History] Gabapentin [Neurontin] 600 mg PO QID 01/18/16 [History] Glimepiride [Amaryl] 2 mg PO DAILY 01/18/16 [History] Losartan [Cozaar] 25 mg PO DAILY 01/18/16 [History] Sertraline [Zoloft] 150 mg PO DAILY 01/18/16 [History] metFORMIN [Glucophage] 500 mg PO BID 01/18/16 [History] Tiotropium [Spiriva] 18 mcg IH DAILY #1 capsule 08/05/17 [Rx] Aspirin 81 mg PO DAILY #30 tab.chew 05/10/18 [Rx] Oxycodone HCl/Acetaminophen [Percocet 7.5-325 mg Tablet] 1 each PO BID PRN 05/10/18 [History] Clopidogrel [Plavix] 75 mg PO DAILY 08/25/18 [History] Pravastatin Sodium [Pravachol] 80 mg PO QPM 08/26/18 [History] Allergy/AdvReac Type Severity Reaction Status Date / Time carvedilol Allergy Difficulty Verified 08/25/18 20:29 Breathing moxifloxacin [From Avelox] Allergy Rash Verified 08/25/18 20:29 acetaminophen [From Vicodin] AdvReac Gastrointestinal Verified 08/25/18 20:29 Upset hydrocodone [From Vicodin] AdvReac Gastrointestinal Verified 08/25/18 20:29 Upset - Meds/Allergy Pre-op Review Medications Reviewed: Yes Allergies Reviewed: Yes Beta Blockers on Current Med List: No Anesthesia Results - Labs 08/29/18 04:25 08/29/18 04:25 04/24/18 Stress EF-68% Reversible Ischemia apical anterior, apical lateral and apex, Cardiac Cath Name: Erin Seymour Date of Study: 05/10/2018 CAD (without ischemic Sx) Impressions: There is severe one vessel coronary artery disease. The left ventricle is normal and has normal contractility EF 60% Patient had successful PTCA/Drug-Eluting Stent placement in the mid RCA. Echocardiogram Name: Erin Seymour Date of Study: 04/07/2018 Impressions: LVEF 65%. Indeterminate diastolic function. Normal right ventricular structure and function. No significant valvular dysfunction. No pulmonary hypertension. - Imaging EKG: report reviewed (SINUS RHYTHM MARKED LEFT AXIS DEVIATION RIGHT BUNDLE BRANCH BLOCK) Anesthesia Exam Vital Signs/O2 Sat, Most Current Temp Pulse Resp BP Pulse Ox 98.5 F 108 18 143/65 92 08/29/18 05:09 08/29/18 08:23 08/29/18 10:58 08/29/18 08:23 08/29/18 10:58 NPO (# of Hours): > 8 hrs Pain Scale: 0 Pain Scale Used: Numeric (1 - 10) - HEENT Pupil (Motor): Pupils equal, EOMI Mallampati: III Teeth: Normal Oral Opening: Greater than 3 - MILLER HEAD WET PROCESS LOC: Oriented MILLER HEAD WET PROCESS Motor: Normal RUE, Normal LUE, Normal RLE, Normal LLE, Normal Face MILLER HEAD WET PROCESS Sensory: Normal: RUE, LUE, RLE, LLE, Face - Cardiac Rhythm: Regular Murmur: None JVD: No Carotid Bruit: No - Pulmonary Breath Sounds: bilateral Clear Respiratory Effort: Symmetrical Anesthesia Assess/Plan ASA Score: 3 Anesthetic Plan: MAC Autologous Blood: Yes Monitoring Plan: Standard Monitors Recovery Plan: PACU
[2018-08-29 14:06] VITALS: BP 104/48
[2018-08-29] MEDS ORDERED: Potassium Chloride Elixir 20 MEQ/15 ML UDC PO ONE (14:19)
[2018-08-29] MEDS ORDERED: Propofol 500 MG/50 ML INFUS..BTL ONE (14:54)
[2018-08-29] MEDS ORDERED: Aspirin Enteric Coated 81 MG Tablet PO SCH (15:30)
--- NOTE | 2018-08-29 15:56 | Internal Med Progress Note ---
Hospitalist Progress Note - Encounter Date of Encounter: 08/29/18 Time of Encounter: 15:53 - Exam Vitals: Temp Pulse Resp BP Pulse Ox 97.8 F 95 16 104/48 95 08/29/18 12:30 08/29/18 14:04 08/29/18 14:04 08/29/18 14:04 08/29/18 14:04 - Assessment and Plan (1) Acute anemia Current Visit: Yes Status: Acute Assessment and Plan: Patient presenting with symptomatic anemia Plan scheduled for EGD and colonoscopy GI recommendations appreciated Will consider transfusing 1 PRBC if Hb <7 or Hct <23 or patient becomes symptom atic (2) Diabetes mellitus Current Visit: No Status: Chronic Assessment and Plan: Blood sugar well controlled. Continue lispro before meals sliding scale. (3) Hypertension Current Visit: Yes Assessment and Plan: Blood pressure well controlled. Patient is on furosemide 40 mg 3 times a day by mouth. (4) Weakness Current Visit: Yes Status: Acute Assessment and Plan: PT/OT evaluated the patient. skilled therapy needed at this time (5) Mood disorder Current Visit: Yes Status: Acute (6) Pneumonia Current Visit: Yes Status: Acute Assessment and Plan: Resolving. Plan discontinue piperacillin/tazobactam start Augmentin 875 mg by mouth twice a day. (7) HLD (hyperlipidemia) Current Visit: Yes Status: Acute (8) Tobacco abuse Current Visit: Yes Status: Acute (9) Hypokalemia Current Visit: Yes Status: Acute Assessment and Plan: Electrolyte replaced. Follow a.m. BMP. Mag and Phosp (10) CAD (coronary artery disease) Current Visit: Yes Status: Chronic Assessment and Plan: recent stent placement. Plan Patient was on dual antiplatelet therapy. Aspirin held due to GI work up for possible GI bleed Plavix continued will resume dual antiplatelet based on GI work up results. Patient needs to continue at least one antiplatelet. DVT Prophylaxis: No chemical DVT prophylaxis due to chronic anemia rule out GI bleed. Mechanical DVT prophylaxis with intermittent pneumatic compression. - Summary of Assessment and Plan Summary of Assessment and Plan: Patient scheduled for Colonoscopy. - Time Spent with Patient Total time spent is greater than 50% in coordination of care (as documented) at patient's floor/unit and/or counseling patient: Greater than 35 minutes (40) Plan of Care Discussed with: patient (and the nurse.) Internal Medicine: Result - Labs CBC & Chem 7: 08/29/18 04:25 08/29/18 04:25 Labs: Short CBC 08/29/18 Range/Units 04:25 WBC 8.9 D (4.3-11.1) K/mcL Hgb 9.3 L (11.5-15.4) g/dL Hct 31.1 L (35.3-44.9) % Plt Count 298 D (140-400) K/mcL Neutrophils # 4.0 (1.6-8.9) K/mcL BMP 08/29/18 04:25 Sodium 138 Potassium 3.3 L Chloride 103 Carbon Dioxide 24 BUN 7 L Creatinine 0.84 Glucose 129 H Calcium 8.3 L - ABG Interpretation ABG results: PT/INR, D-dimer PT 12.4 Seconds (9.4-12.1) H 08/26/18 05:09 Consult Discharge Plan - Plan Referrals: Justin Sharma, INFORMATION TECHNOLOGY INTERN [Primary Care Provider] - (2) Diabetes mellitus Qualifiers: Diabetes mellitus type: type 2 Diabetes mellitus residential insulin use: without residential use Diabetes mellitus complication status: with unspecified complications Qualified Code(s): E11.8 - Type 2 diabetes mellitus with unspec ified complications (3) Hypertension Qualifiers: Hypertension type: essential hypertension Qualified Code(s): I10 - Essential (primary) hypertension (6) Pneumonia Qualifiers: Pneumonia type: due to unspecified organism Laterality: bilateral Lung location: unspecified part of lung Qualified Code(s): J18.9 - Pneumonia, unspecified organism (10) CAD (coronary artery disease) Qualifiers: Coronary Disease-Associated Artery/Lesion type: unspecified vessel or lesion type [place] vs. transplanted heart: [place] heart Associated angina: angina presence unspecified Qualified Code(s): I25.10 - Atherosclerotic heart disease of [place] coronary artery without angina pectoris
--- NOTE | 2018-08-29 16:23 | Discharge Summary ---
- NOTES TO OUTPATIENT PROVIDER Notes to Outpatient Provider: CBC within a week Orders not resulted at time of discharge: Pending orders 08/26/18 04:37 Culture,Sputum with Gram Stain [RM] Stat Date of Encounter: 08/29/18 Time of Encounter: 16:20 - Discharge Diagnosis (1) Acute anemia Priority: Primary Status: Acute (2) Diabetes mellitus Priority: Secondary Status: Chronic Qualifiers: Diabetes mellitus type: type 2 Diabetes mellitus terminal operations supervisor insulin use: without terminal operations supervisor use Diabetes mellitus complication status: with unspecified complications Qualified Code(s): E11.8 - Type 2 diabetes mellitus with unspecified complications (3) Hypertension Priority: Secondary Qualifiers: Hypertension type: essential hypertension Qualified Code(s): I10 - Essential (primary) hypertension (4) Weakness Priority: Secondary Status: Resolved (5) Mood disorder Priority: Secondary Status: Chronic (6) Pneumonia Priority: Secondary Status: Resolved Qualifiers: Pneumonia type: due to unspecified organism Laterality: bilateral Lung location: unspecified part of lung Qualified Code(s): J18.9 - Pneumonia, unspecified organism (7) HLD (hyperlipidemia) Priority: Secondary Status: Chronic Qualifiers: Hyperlipidemia type: unspecified Qualified Code(s): E78.5 - Hyperlipidemia, unspecified (8) Tobacco abuse Priority: Secondary Status: Chronic (9) Hypokalemia Priority: Secondary Status: Resolved (10) CAD (coronary artery disease) Priority: Secondary Status: Chronic Qualifiers: Coronary Disease-Associated Artery/Lesion type: unspecified vessel or lesion type [place] vs. transplanted heart: [place] heart Associated angina: angina presence unspecified Qualified Code(s): I25.10 - Atherosclerotic heart disease of [place] coronary artery without angina pectoris Hospital course: Ms. Seymour is a 63 year old female history of CAD, with recent stent placement in April. CHF, COPD, CAD, diabetes, hypertension, hyperlipidemia, and hepatitis C. She arrived at [facility] as a transfer from [place], where she presented complaining of persistent shortness of breath and weakness. Admitted to the hospital due to pneumonia, and chronic anemia. Started on IV antibiotics. GI consulted due to chronic Iron deficiency anemia. Patient underwent EDG and Colonoscopy: Many small diverticula in the sigmoid colon and internal hemorrhoids. EGD: Examined esophagus was normal, examined stoamch was normal, examined duodenum was normal. GI recommended outpatient follow up in a week to repeat a CBC. PT/OT was consulted due to patient generalized weakness, and did not recommended rehab. Patient symptoms have resolved. Patient is hemodynamically stable to be DC home. recommended to continue augmentin 875mg/PO BID for 3 more days. recommended to continue aspirin and plavix. - Time Spent with Patient Total time spent providing and/or coordinating discharge services: Greater than 30 minutes (40) - Discharge Medications Prescriptions: Amoxicillin/Clavulanate [Augmentin] 875 mg PO BIDWM 3 Days #6 tablet Home Medications: Furosemide [Lasix] 120 mg PO DAILY PRN 01/18/16 [History] Gabapentin [Neurontin] 600 mg PO QID 01/18/16 [History] Glimepiride [Amaryl] 2 mg PO DAILY 01/18/16 [History] Losartan [Cozaar] 25 mg PO DAILY 01/18/16 [History] Sertraline [Zoloft] 150 mg PO DAILY 01/18/16 [History] metFORMIN [Glucophage] 500 mg PO BID 01/18/16 [History] Tiotropium [Spiriva] 18 mcg IH DAILY #1 capsule 08/05/17 [Rx] Aspirin 81 mg PO DAILY #30 tab.chew 05/10/18 [Rx] Oxycodone HCl/Acetaminophen [Percocet 7.5-325 mg Tablet] 1 each PO BID PRN 05/10/18 [History] Clopidogrel [Plavix] 75 mg PO DAILY 08/25/18 [History] Pravastatin Sodium [Pravachol] 80 mg PO QPM 08/26/18 [History] Amoxicillin/Clavulanate [Augmentin] 875 mg PO BIDWM 3 Days #6 tablet 08/29/18 [Rx] Diltiazem [Cardizem] 30 mg PO Q8HR 08/29/18 [History] Allergies/Adverse Reactions: Allergy/AdvReac Type Severity Reaction Status Date / Time carvedilol Allergy Difficulty Verified 08/25/18 20:29 Breathing moxifloxacin [From Avelox] Allergy Rash Verified 08/25/18 20:29 acetaminophen [From Vicodin] AdvReac Gastrointestinal Verified 08/25/18 20:29 Upset hydrocodone [From Vicodin] AdvReac Gastrointestinal Verified 08/25/18 20:29 Upset Date of admission: 08/26/18 06:33 Primary care physician: Justin Sharma CNP Consults: 08/26/18 05:47 Consult to Technical Systems Architect [CONS] Routine Reason for SW Consult: Patient will likely require home oxygen 08/27/18 09:24 Consult to Gastroenterology [CONS] Routine Consulting Provider: Dawna Morales Reason for Consult: Evaluation for acute blood loss anemia Call Completed: No - Constitutional Vitals: Temp Pulse Resp BP Pulse Ox 97.8 F 95 16 104/48 95 08/29/18 12:30 08/29/18 14:04 08/29/18 14:04 08/29/18 14:04 08/29/18 14:04 Exam: Vitals: reviewed. General: Alert and oriented x4. in no acute distress Skin: Normal color, no rash, no lesions. HEENT: EOM, pupils equal, round and reactive. Cardiovascular: RRR, Normal S1 & S2, no rubs, murmurs or gallops. Lungs: Clear to auscultation bilaterally, no wheezes or crackles. Abdomen: Obese Soft, non-tender, no rigidity. Extremities: 2+ edema in the lower extremity bilaterally. Neurological: Normal cognition and motor skills. Rest of the physical exam is non contributory - Patient Status Disposition: Home, Self-Care Condition: Good Functional capacity at discharge: independent ambulation Overall status at discharge: patient is back to baseline - Discharge Instructions Follow Up With: Jsutin Sharma CNP [Primary Care Provider] - - Diet and Activity Activity: resume usual activities as tolerated Diet: advance to your usual diet, diabetic diet
[2018-08-29] MEDS ORDERED: Aminoglycoside Consult 1 EACH MC ONE (17:53)
== END 2018-08-29 17:54 | disposition home or self-care (01) | DRG 194 ==
LOC: 2NENU → SUATTDRO 06:33
PROVIDERS: ADMIT Internal Medicine; ATTEND Internal Medicine